=== PATIENT | male | born 1975 | race Caucasian/White ===

== ENCOUNTER 2022-09-03 07:00 | Day surgery (SDC) | payer OTHER ==
[~2022-09-03] VITALS: Ht 182.9 cm; Wt 88.5 kg
[~2022-09-03 07:00] MED LIST: CLARITIN10 M2 PO; CYCLOBENZAPRINE10 MG PO; MELOXICAM15 MG PO
[2022-09-03 08:39] VITALS: BP 103/71
== END 2022-09-03 09:04 | disposition home or self-care (01) | DRG 379 ==
LOC: ENDO 07:00 → ORM 09:30 → ENDO 09:30
PROVIDERS: ATTEND Surgery
PROC: 0DBB8ZX Excision of Ileum, Via Natural or Artificial Opening Endoscopic, Diagnostic (ICD-10-PCS; principal; 2022-09-03)
PROC: 0DBE8ZX Excision of Large Intestine, Via Natural or Artificial Opening Endoscopic, Diagnostic (ICD-10-PCS; 2022-09-03)
PROC: 0DBN8ZX Excision of Sigmoid Colon, Via Natural or Artificial Opening Endoscopic, Diagnostic (ICD-10-PCS; 2022-09-03)
DX: K57.31 Diverticulosis of large intestine without perforation or abscess with bleeding (principal); D12.5 Benign neoplasm of sigmoid colon